=== PATIENT | male | born 1965 | race Caucasian/White ===

== ENCOUNTER → 2016-12-13 | Outpatient (CLI) | payer MEDICARE ==
[2016-12-13 09:42] LABS: HEMOGLOBIN 13.5 gm/dl (14.0-17.5); RED BLOOD COUNT 4.1 M/UL (4.20-5.50); WHITE BLOOD COUNT 3.2 K/UL (4.5-11.0)
[2016-12-13 09:51] LABS: BUN/CREATININE RATIO 12 (0-10)
== END ==
LOC: MRI 08:29
PROVIDERS: Internal Medicine Hematology & Oncology
DX: K76.89 Other specified diseases of liver (principal); D69.6 Thrombocytopenia, unspecified; B18.2 Chronic viral hepatitis C; R16.1 Splenomegaly, not elsewhere classified
CPT/HCPCS: 74183; 80053; 82140; 82248; 85025; A9577; J7050